=== PATIENT | female | born 1970 | race Caucasian/White ===

== ENCOUNTER 2018-04-02 09:49 | Emergency (ER) | payer OTHER ==
[2018-04-02] MEDS ORDERED: NS 0.9% 1000 ML* 1,000 ML IV ONE (10:26)
[2018-04-02] MEDS ORDERED: Ketorolac INJ* 15 MG/ML 1 ML VIAL IV ONE (10:26)
[2018-04-02 11:23] LABS: ABS Basophils 0.1 10^3/ul (0-0.2); ABS Eosinophils 0.1 10^3/ul (0-0.6); ABS Lymphocytes 2.7 10^3/ul (1.0-4.8); ABS Monocytes 0.4 10^3/ul (0-0.8); ABS Neutrophils 4.7 10^3/ul (1.5-7.7); ABS Nucleated RBC 0 10^3/ul; Eosinophil % 1.5 % (0-6); Hematocrit 40 % (35-47); Hemoglobin 13.8 g/dl (12.0-16.0); Lymphocyte % 34.3 % (25-47); Mean Corpuscular HGB Conc 35 g/dl (31-36); Mean Corpuscular Hemoglobin 33 pg (27-31); Mean Corpuscular Volume 96 fL (80-97); Mean Platelet Volume 8.8 um3 (7.4-10.4); Nucleated Red Blood Cells % 0.1; Platelet Count 252 10^3/ul (150-450); Red Blood Count 4.17 10^6/ul (4.00-5.40); Red Cell Distribution Width 14 % (10.5-15)
[2018-04-02 11:39] LABS: EGFR Non-African American 93.2 (>60)
[2018-04-02] MEDS ORDERED: Iohexol 300* (CONTRAST) 10 ML SDV IV ONE (12:00)
[2018-04-02 12:36] LABS: Urine Appearance Cloudy; Urine Blood Negative (Negative); Urine Color Yellow; Urine Ketones Negative (Negative); Urine Protein Negative (Negative); Urine Specific Gravity 1.009 (1.010-1.030); Urine Urobilinogen Negative (Negative)
--- NOTE | 2018-04-02 12:41 | RAD ---
INDICATION: Abdominal pain COMPARISON: None TECHNIQUE: Axial source images were obtained from the hemidiaphragms to the symphysis pubis following administration intravenous contrast only as directed by the ED physician. There are inherent limitations without oral contrast and if there is persistent concern recommend routine contrast enhanced imaging. Coronal and sagittal reconstructed images were acquired. Lung bases: The lung bases are clear. Liver: The liver is normal in size. There are no masses. There is no ductal dilatation. Gallbladder: Cholecystectomy. Spleen: The spleen is normal in size. There are no masses. Pancreas: There is no focal pancreatic mass or ductal dilatation. Adrenal glands: There is no evidence of adrenal mass. Kidneys: The kidneys are normal in size and position. There are prompt nephrograms and there is prompt excretion bilaterally. There are no renal parenchymal masses. There is no evidence of nephrolithiasis. Adenopathy: There is no gross evidence of adenopathy by size criteria. Fluid collections: There are no free or localized fluid collections. Vessels:There are no significant atherosclerotic changes involving the aorta. There is no focal aneurysm. The iliac vessels are normal in caliber. The IVC appears normal. GI tract: Evaluation of the GI tract is limited without oral contrast. There are no gross abnormalities the upper or lower GI tract. Appendix is visualized and appears normal. There is no obstruction. Pelvic organs: Uterus and left adnexa are normal. There is a presumed involuting 1.2 cm right ovarian cyst Bladder: There are no bladder masses. Abdominal and pelvic soft tissues: The extraperitoneal abdominal and pelvic soft tissues appear normal.. Osseous structures: There are no acute osseous findings. Other: None IMPRESSION: NO ACUTE CT FINDINGS. NO MASS OR INFLAMMATORY CHANGES. PRESUMED INVOLUTING RIGHT OVARIAN CYST
[2018-04-02 13:05] VITALS: BP 117/72
--- NOTE | 2018-04-03 15:58 | ED ---
Sher Saenz Angela, scribed for Nereida Cavanaugh MD on 04/02/18 at 1025 . Abdominal Pain/Female - HPI Summary HPI Summary: This pt is a 47 y/o female presenting to [facility] c/o sudden onset of lower abdominal pain since 08:00 this morning. Her abdominal pain began while she was sitting in her 's truck. Pt reports her abd pain is intermittent and is described as sharp. She states her pain is aggravated with ambulation. At onset of her pain she rates is 10/10 in severity. Currently her pain is rated 5/10 in severity. Pt additionally c/o left sided back pain. Denies nausea, vomiting, dysuria, urinary frequency, diarrhea, constipation. Her last bowel movement was this morning and states it was normal. 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 Denies hx of kidney stones. PMHx significant for cholecystectomy (4-5 years ago) . Pt is current every day smoker, she smokes 1 PPD. Denies alcohol use. NKDA. - History of Current Complaint Chief Complaint: EDAbdPain Stated Complaint: ABD PAIN Time Seen by Provider: 04/02/18 10:16 Hx Obtained From: Patient Onset/Duration: Lasting Hours, Still Present Timing: Hours Severity Initially: Severe Severity Currently: Moderate Pain Intensity: 5 Pain Scale Used: 0-10 Numeric Location: Other - lower Radiates: No Character: Sharp Aggravating Factor(s): Other: - ambulation Alleviating Factor(s): Nothing Associated Signs and Symptoms: Positive: Back Pain - right sided. Negative: Fever, Constipation, Urinary Symptoms, Nausea, Vomiting, Diarrhea Allergies/Adverse Reactions: Allergies Allergy/AdvReac Type Severity Reaction Status Date / Time bee venom protein (honey bee) Allergy Anaphylatic Verified 04/02/18 10:12 Shock Home Medications: Home Medications NK [No Home Medications Reported] 04/02/18 [History Confirmed 04/02/18] PMH/Surg Hx/FS Hx/Imm Hx Endocrine/Hematology History: Denies: Hx Diabetes Cardiovascular History: Denies: Hx Hypertension History: Denies: Hx Kidney Stones - Cancer History Hx Chemotherapy: No Hx Radiation Therapy: No - Surgical History Surgery Procedure, Year, and Place: tubal ligation. Cholecystectomy Infectious Disease History: No Infectious Disease History: Denies: History Other Infectious Disease, Traveled Outside the [place] in Last 30 Days - Family History Known Family History: Positive: Hypertension Family History: Sister: breast [place] - Social History Alcohol Use: Occasionally Substance Use Type: Reports: None Hx Tobacco Use: Yes Smoking Status (MU): Heavy Every Day Tobacco Smoker Amount Used/How Often: 1 PPD Review of Systems Negative: Fever, Chills Positive: Abdominal Pain. Negative: Vomiting, Diarrhea, Nausea, Other - constipation Negative: dysuria, frequency Musculoskeletal: Other - right sided back pain All Other Systems Reviewed And Are Negative: Yes Physical Exam - Summary Physical Exam Summary: GENERAL: Patient is a well developed and nourished female who is lying comfortable in the stretcher. Patient is not in any acute respiratory distress. HEAD AND FACE: Normocephalic EYES: PERRLA, EOMI x 2. EARS: Hearing grossly intact. MOUTH: Oropharynx within normal limits. NECK: Supple, trachea is midline, no adenopathy, no JVD, no carotid bruit. CHEST: Symmetric, no tenderness at palpation LUNGS: Clear to auscultation bilaterally. No wheezing or crackles. CVS: Regular rate and rhythm, S1 and S2 present, no murmurs or gallops appreciated. ABDOMEN: Soft, non-tender. Bowel sounds are normal. No abdominal abnormal pulsations. EXTREMITIES: Full ROM in all major joints, no edema, no cyanosis or clubbing. NEURO: Alert and oriented x 3. No acute neurological deficits. Speech is normal and follows commands. SKIN: Dry and warm Triage Information Reviewed: Yes Vital Signs On Initial Exam: Initial Vitals Temp Pulse Resp BP Pulse Ox 97.8 F 67 18 117/69 98 04/02/18 10:09 04/02/18 10:04/02/18 10:09 04/02/18 10:04/02/18 10:09 Vital Signs Reviewed: Yes Diagnostics - Vital Signs Vital Signs Temp Pulse Resp BP Pulse Ox 04/02/18 10:09 97.8 F 67 18 117/69 98 - Laboratory Lab Results: Lab Results 04/02/18 04/02/18 04/02/18 Range/Units 10:48 10:48 10:48 WBC 8.0 (3.5-10.8) 10^3/ul RBC 4.17 (4.00-5.40) 10^6/ul Hgb 13.8 (12.0-16.0) g/dl Hct 40 (35-47) % MCV 96 (80-97) fL MCH 33 H (27-31) pg MCHC 35 (31-36) g/dl RDW 14 (10.5-15) % Plt Count 252 (150-450) 10^3/ul MPV 8.8 (7.4-10.4) um3 Neut % (Auto) 58.2 (38-83) % Lymph % (Auto) 34.3 (25-47) % Karnes % (Auto) 5.2 (0-7) % Eos % (Auto) 1.5 (0-6) % Baso % (Auto) 0.8 (0-2) % Absolute Neuts (auto) 4.7 (1.5-7.7) 10^3/ul Absolute Lymphs (auto) 2.7 (1.0-4.8) 10^3/ul Absolute Monos (auto) 0.4 (0-0.8) 10^3/ul Absolute Eos (auto) 0.1 (0-0.6) 10^3/ul Absolute Basos (auto) 0.1 (0-0.2) 10^3/ul Absolute Nucleated RBC 0 10^3/ul Nucleated RBC % 0.1 Sodium 139 (135-145) mmol/L Potassium 3.9 (3.5-5.0) mmol/L Chloride 111 (101-111) mmol/L Carbon Dioxide 22 (22-32) mmol/L Anion Gap 6 (2-11) mmol/L BUN 9 (6-24) mg/dL Creatinine 0.68 (0.51-0.95) mg/dL Est GFR ( Amer) 119.8 (>60) Est GFR (Non-Af Amer) 93.2 (>60) BUN/Creatinine Ratio 13.2 (8-20) Glucose 98 (70-100) mg/dL Lactic Acid 0.7 (0.5-2.0) mmol/L Calcium 9.4 (8.6-10.3) mg/dL Magnesium 2.0 (1.9-2.7) mg/dL Total Bilirubin 0.30 (0.2-1.0) mg/dL AST 14 (13-39) U/L ALT 4 L (7-52) U/L Alkaline Phosphatase 69 (34-104) U/L C-Reactive Protein 2.94 (<8.01) mg/L Total Protein 6.9 (6.4-8.9) g/dL Albumin 4.2 (3.2-5.2) g/dL Globulin 2.7 (2-4) g/dL Albumin/Globulin Ratio 1.6 (1-3) Amylase 33 (29-103) U/L Lipase 31 (11.0-82.0) U/L Beta HCG, Quant < 0.60 mIU/mL Urine Color Urine Appearance Urine pH (5-9) Ur Specific Roscoe (1.010-1.030) Urine Protein (Negative) Urine Ketones (Negative) Urine Blood (Negative) Urine Nitrate (Negative) Urine Bilirubin (Negative) Urine Urobilinogen (Negative) Ur Leukocyte Esterase (Negative) Urine Glucose (Negative) 04/02/18 Range/Units 12:28 WBC (3.5-10.8) 10^3/ul RBC (4.00-5.40) 10^6/ul Hgb (12.0-16.0) g/dl Hct (35-47) % MCV (80-97) fL MCH (27-31) pg MCHC (31-36) g/dl RDW (10.5-15) % Plt Count (150-450) 10^3/ul MPV (7.4-10.4) um3 Neut % (Auto) (38-83) % Lymph % (Auto) (25-47) % Karnes % (Auto) (0-7) % Eos % (Auto) (0-6) % Baso % (Auto) (0-2) % Absolute Neuts (auto) (1.5-7.7) 10^3/ul Absolute Lymphs (auto) (1.0-4.8) 10^3/ul Absolute Monos (auto) (0-0.8) 10^3/ul Absolute Eos (auto) (0-0.6) 10^3/ul Absolute Basos (auto) (0-0.2) 10^3/ul Absolute Nucleated RBC 10^3/ul Nucleated RBC % Sodium (135-145) mmol/L Potassium (3.5-5.0) mmol/L Chloride (101-111) mmol/L Carbon Dioxide (22-32) mmol/L Anion Gap (2-11) mmol/L BUN (6-24) mg/dL Creatinine (0.51-0.95) mg/dL Est GFR ( Amer) (>60) Est GFR (Non-Af Amer) (>60) BUN/Creatinine Ratio (8-20) Glucose (70-100) mg/dL Lactic Acid (0.5-2.0) mmol/L Calcium (8.6-10.3) mg/dL Magnesium (1.9-2.7) mg/dL Total Bilirubin (0.2-1.0) mg/dL AST (13-39) U/L ALT (7-52) U/L Alkaline Phosphatase (34-104) U/L C-Reactive Protein (<8.01) mg/L Total Protein (6.4-8.9) g/dL Albumin (3.2-5.2) g/dL Globulin (2-4) g/dL Albumin/Globulin Ratio (1-3) Amylase (29-103) U/L Lipase (11.0-82.0) U/L Beta HCG, Quant mIU/mL Urine Color Yellow Urine Appearance Cloudy Urine pH 6.0 (5-9) Ur Specific Roscoe 1.009 L (1.010-1.030) Urine Protein Negative (Negative) Urine Ketones Negative (Negative) Urine Blood Negative (Negative) Urine Nitrate Negative (Negative) Urine Bilirubin Negative (Negative) Urine Urobilinogen Negative (Negative) Ur Leukocyte Esterase Negative (Negative) Urine Glucose Negative (Negative) Result Diagrams: 04/02/18 10:48 04/02/18 10:48 Lab Statement: Any lab studies that have been ordered have been reviewed, and results considered in the medical decision making process. - CT Abdomen/Pelvis CT CT Interpretation: No Acute Changes - IMPRESSION: No acute CT findings. No mass or inflammatory changes. Presumed involuting right ovarian cyst. Dr. Cavanaugh has reviewed this radiology report. CT Interpretation Completed By: Radiologist Re-Evaluation - Re-Evaluation First Eval Re-Evaluation Time: 12:53 Change: Improved Comment: CT shows pt has a 1.2 cm right ovarian cyst, she is aware of this. I offered her an ultrasound but she declines as she reports her pain is better. Pt notes her pain was located in the mid and left lower abdomen. Pt states she will return to the ED if her pain returns and/or worsens. Abdominal Pain Fem Course/Dx - Course Course Of Treatment: 47-year-old female who presents to the emergency room with an acute onset of lower abdominal pain worse on the left than on the right. CT scan of the abdomen and pelvis was obtained which shows probably right ovarian cyst measuring 1.2 cm for each patient said that she is aware. I offered to do an ultrasound of the pelvis however, patient reports that her pain is much better and will return to the hospital for any change in symptoms - Diagnoses Provider Diagnoses: Abdominal pain, Right ovarian cyst Discharge - Sign-Out/Discharge Documenting (check all that apply): Discharge/Admit/Transfer - Discharge - Discharge Plan Condition: Stable Disposition: HOME Patient Education Materials: Ovarian Cyst (ED), Abdominal Pain (ED) Referrals: No Primary Care Phys,NOPCP [Primary Care Provider] - [facility] [Outside] Additional Instructions: Please establish a primary care provider and follow up. RETURN TO THE ED FOR ANY NEW OR WORSENING SYMPTOMS. - Billing Disposition and Condition Condition: STABLE Disposition: Home The documentation as recorded by the Sher jackson Angela accurately reflects the service I personally performed and the decisions made by me, Nereida Cavanaugh MD.
== END 2018-04-02 13:02 | disposition home or self-care (01) ==
LOC: ED 09:49
DX: R10.32 Left lower quadrant pain (principal); N83.201 Unspecified ovarian cyst, right side; F17.200 Nicotine dependence, unspecified, uncomplicated; Z90.49 Acquired absence of other specified parts of digestive tract
CPT/HCPCS: 36415; 74177; 80053; 81003; 82150; 83605; 83690; 83735; 84702; 85025; 86140; 96361; 96374; 99282; J1885; Q9967

== ENCOUNTER 2019-04-07 08:09 | Day surgery (SDC) | payer OTHER ==
--- NOTE | 2019-04-03 08:31 | HP ---
PREOPERATIVE HISTORY AND PHYSICAL: DATE OF SURGERY/ADMISSION: 04/07/19 - [facility] DATE OF OFFICE VISIT/ENCOUNTER: 03/18/19 ATTENDING SURGEON: Elvia Cheng MD * (DICTATED BY DANA HILLIARD) PROCEDURE: Left wrist carpal tunnel release. HISTORY OF PRESENT ILLNESS: This is a 48-year-old female who complains of numbness and tingling in the bilateral hands, worse on the left than on the right. She has had ongoing trouble for several months. There was no specific injury. These symptoms have been significant enough and disrupting her activities of daily life that she would like definitive treatment. She has consented to proceed with a left wrist carpal tunnel release. PAST MEDICAL HISTORY: Unremarkable. PAST SURGICAL HISTORY: 1. Tubal ligation. 2. Cholecystectomy. MEDICATIONS: Ibuprofen p.r.n. ALLERGIES: No known drug allergies. FAMILY MEDICAL HISTORY: Diabetes and cancer. 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 She is a current smoker. She reports smoking 6 cigarettes per day. She smoked since age 17. She also uses marijuana on a regular occasion. She does not drink alcohol. REVIEW OF SYSTEMS: Negative for general, cephalic, cardiovascular, respiratory , GI, , other musculoskeletal, integumentary, endocrine, neurologic, and hematologic symptoms. Infectious Disease: Negative for MRSA, hepatitis C, HIV. PHYSICAL EXAMINATION GENERAL: Well-developed, well-nourished, 48-year-old female, in no acute distress. VITAL SIGNS: Height 5 feet 7 inches, weight 172 pounds, pulse rate 72, blood pressure 118/84. HEENT: Normocephalic and atraumatic. Pupils are equal, round, and reactive to light and accommodation. Extraocular movements are intact. Throat is clear. NECK: Supple. No palpable lymph nodes. PULMONARY: Lungs are clear to auscultation bilaterally. No wheezes, rales, or rhonchi. CARDIOVASCULAR: Regular rate and rhythm. S1 and S2. No murmurs, rubs, or gallops. No edema. ABDOMEN: Positive bowel sounds. Soft and nontender. NEUROLOGIC: Alert and oriented x3. Cranial nerves II through XII are intact. Sensation is intact to light touch. MUSCULOSKELETAL: On exam of her bilateral upper extremities, there is mild thenar wasting bilaterally and there is weakness with thumb abduction. Otherwise, she has good range of motion of her fingers. She has positive Phalen test bilaterally. Negative Tinel's at the ulnar nerve, at the elbow. She reports decreased sensation in the median nerve distribution to light touch bilateral hands. IMPRESSION: Bilateral carpal tunnel syndrome, worse on the left than on the right. PLAN/RECOMMENDATIONS: The patient is scheduled to undergo a left wrist carpal tunnel release with Dr. Cheng on 04/07/19. She will return to the office 10 days postop for followup and suture removal. A prescription for Ultracet was e-scribed to the patient's pharmacy for postoperative pain management. DANA HILLIARD [id number]/CPS #: [id number] MTDD
[~2019-04-07 08:09] MED LIST: Buffered Lidocaine 1% SYRIN* 1 ML/SYRINGE INTRADERM ONE; Lactated Ringers 1000 ML Bag* 1,000 ML IV SCH; Lidocaine 1% INJ* 10 MG/ML 30 ML SDV ONE; Scopolamine 1.5 mg* PATCH TRANSDERM SCH
[2019-04-07] MEDS ORDERED: Midazolam* 1 MG/ML 2 ML VIAL (2 MG) ONE (08:44)
[2019-04-07] MEDS ORDERED: Propofol* 10 MG/ML 20 ML BTL ONE (08:44)
[2019-04-07] MEDS ORDERED: fentaNYL* 50 MCG/ML 2 ML VIAL (100 MCG VIAL) ONE (08:44)
[2019-04-07] MEDS ORDERED: Naloxone* 0.4 MG/ML 1 ML VIAL IV PRN (09:07)
[2019-04-07] MEDS ORDERED: Acetaminophen TAB* 325 MG PO PRN (09:07)
[2019-04-07] MEDS ORDERED: fentaNYL* 50 MCG/ML 2 ML VIAL (100 MCG VIAL) IV PRN (09:07)
[2019-04-07] MEDS ORDERED: Ondansetron INJ* 2 MG/ML VIAL IV PRN (09:07)
[2019-04-07] MEDS ORDERED: oxyCODONE/Acetamin 5/325 MG* TAB PO PRN (09:07)
[2019-04-07] MEDS ORDERED: Ibuprofen TAB* 600 MG PO PRN (09:07)
[2019-04-07 09:52] VITALS: BP 115/70
--- NOTE | 2019-04-07 12:40 | OP ---
DATE OF OPERATION: 04/07/19 [facility] DATE OF : 72 SURGEON: Elvia Cheng MD YARDING ENGINEER: DANA Cabral ANESTHESIA: Local MAC. PRE-OP DIAGNOSIS: Right carpal tunnel syndrome. POST-OP DIAGNOSIS: Right carpal tunnel syndrome. OPERATIVE PROCEDURE: Right carpal tunnel release. ESTIMATED BLOOD LOSS: Zero. TOURNIQUET TIME: Approximately 10 minutes. INDICATIONS FOR PROCEDURE: Rocio is a 48-year-old woman who has numbness and tingling in the median nerve distribution of her right hand. She presents for right carpal tunnel release. DESCRIPTION OF PROCEDURE: The patient was brought to the operating room, was given a sedation anesthetic and a local infiltration of 10 cc of 1% plain lidocaine in the palm of her right hand. The skin of her right hand and forearm was prepped and draped in the usual sterile fashion. The hand and forearm were exsanguinated and the tourniquet elevated to 250 mmHg. A longitudinal incision was made in the palm in line with the ring finger. We dissected through the subcutaneous tissue down to the transverse carpal ligament. The ligament was divided sharply with a knife and then more proximally with the scissors. The nerve was dissected free from the surrounding tissue and there was an area of moderate compression at the mid portion of the ligament. The wound was irrigated and the skin edges reapproximated with 4- 0 nylon suture. The wound was dressed with Xeroform, 4x4 , Webril, and an Abdulkadir wrap. The patient tolerated the procedure well and was brought to the recovery room in good condition. [id number]/CPS #: [id number] [facility]
== END 2019-04-07 10:07 | disposition home or self-care (01) ==
LOC: OREAST 08:09
PROVIDERS: ATTEND Orthopaedic Surgery
DX: G56.01 Carpal tunnel syndrome, right upper limb (principal); Z72.0 Tobacco use; J45.909 Unspecified asthma, uncomplicated; I25.2 Old myocardial infarction
CPT/HCPCS: J2250; J2704; J3010

== ENCOUNTER 2019-12-14 11:53 | Emergency (ER) | payer SELFPAY ==
[2019-12-14 12:38] VITALS: BP 116/63
[2019-12-14] MEDS ORDERED: Tetan/Diph/Pertus SYR(Tdap)* 0.5 ML SYR(BOOSTRIX) use SYR contains LATEX IM ONE (12:49)
--- NOTE | 2019-12-14 13:15 | UC ---
Hand/Wrist HPI - HPI Summary HPI Summary: 48-year-old female presents with injury to her right thumb. States at approximately 10:30 this morning she accidentally shut her thumb in a door at work causing a laceration just below the fingernail. Bleeding was controlled prior to arrival. States has full range of motion to the thumb. Tetanus status is unknown. Denies any numbness or tingling. - History Of Current Complaint Chief Complaint: UCUpperExtremity Stated Complaint: FINGER INJURY Time Seen by Provider: 12/14/19 12:44 Hx Obtained From: Patient Hx Last Menstrual Period: Pain Intensity: 7 - Allergies/Home Medications Allergies/Adverse Reactions: Allergies Allergy/AdvReac Type Severity Reaction Status Date / Time bee venom protein (honey bee) Allergy Severe Anaphylatic Verified 12/14/19 12:38 Shock Fish Containing Products Allergy Severe red Verified 12/14/19 12:38 blotches all over Home Medications: Home Medications Ibuprofen TAB* [Motrin TAB* 800 MG] 800 mg PO BID 03/31/19 [History Confirmed ] PMH/Surg Hx/FS Hx/Imm Hx Previously Healthy: Yes - Denies significant PMH - Surgical History Surgical History: Yes Surgery Procedure, Year, and Place: tubal ligation. Cholecystectomy - Family History Known Family History: Positive: Hypertension Family History: Sister: breast [place] - Social History Occupation: Employed Full-time Lives: Alone Alcohol Use: None Substance Use Type: Marijuana Smoking Status (MU): Heavy Every Day Tobacco Smoker Amount Used/How Often: 1 PPD, on and off since 17 years old Household Exposure Type: Cigarettes Review of Systems All Other Systems Reviewed And Are Negative: Yes Constitutional: Positive: Negative Skin: Positive: Other - See HPI Respiratory: Positive: Negative Cardiovascular: Positive: Negative Gastrointestinal: Positive: Negative Genitourinary: Positive: Negative Motor: Negative: Weakness Neurovascular: Negative: Decreased Sensation Musculoskeletal: Negative: Decreased ROM Neurological/Mental Status: Positive: Negative Is Patient Immunocompromised?: No Physical Exam - Summary Physical Exam Summary: GENERAL APPEARANCE: Well developed, well nourished, alert and cooperative, and appears to be in no acute distress. CARDIAC: Normal S1 and S2. No S3, S4 or murmurs. Rhythm is regular. There is no peripheral edema, cyanosis or pallor. Extremities are warm and well perfused. Capillary refill is less than 2 seconds. Peripheral pulses intact. LUNGS: Clear to auscultation without rales, rhonchi, wheezing or diminished breath sounds. ABDOMEN: Positive bowel sounds. Soft, nondistended, nontender. No guarding or rebound. No masses or hepatosplenomegally. MUSKULOSKELETAL: ROM intact to all extremities. No joint erythema or tenderness. Normal muscular development. Normal gait. EXTREMITIES: Superficial flap laceration of the proximal nail fold of the right thumb without involvement of the nail. No gross deformity. Full ROM to the thumb. Circulation and sensation intact. SKIN: Skin normal color, texture and turgor. Triage Information Reviewed: Yes Vital Signs: Initial Vital Signs Temp 99.4 F 12/14/19 12:33 Pulse 72 12/14/19 12:33 Resp 16 12/14/19 12:33 BP 116/63 12/14/19 12:33 Pulse Ox 99 12/14/19 12:33 Vital Signs Reviewed: Yes Diagnostics - Radiology No standard instances Radiology Interpretation Completed By: Radiologist Summary of Radiographic Findings: Order Information: THUMB RIGHT. HISTORY: pain s/p injury . COMPARISONS: None relevant available at the time of dictation. VIEWS: 3, Frontal, lateral, and oblique views of the first digit of the right hand. FINDINGS: BONE DENSITY: Normal. BONES: There is no displaced fracture. JOINTS: There is osteoarthritis of the first interphalangeal, CMC, MCP joints. ALIGNMENT: There is no dislocation. SOFT TISSUES: Unremarkable. OTHER FINDINGS: None. IMPRESSION: OSTEOARTHRITIS. NO ACUTE OSSEOUS INJURY. Hand/Wrist Course/Dx - Course Course Of Treatment: 48-year-old female presents with injury to her right thumb. States at approximately 10:30 this morning she accidentally shut her thumb in a door at work causing a laceration just below the fingernail. Bleeding was controlled prior to arrival. States has full range of motion to the thumb. Tetanus status is unknown. Denies any numbness or tingling. Afebrile. Vital signs stable. On exam patient had a superficial flap laceration of the proximal nail fold of the right thumb without involvement of the nail. No gross deformity. Full ROM to the thumb. Circulation and sensation intact. X-ray showed no acute fracture or dislocation. The wound was irrigated by the RN. Due to the superficial nature of the injury I did not feel that any repair was necessary although I did discuss with the patient that because the flap laceration was superficial it was likely that there would not be an adequate blood supply in that the skin would eventually fall off. We also discussed that because the injury was located over the nail matrix that there was a good chance that she may also lose the fingernail. The wound was dressed by the RN and a finger splint was applied by the RN to provide protection. She is to follow-up with occupational medicine in one week if the wound was failing to heal appropriately. Anticipatory guidance and warning symptoms were reviewed with the patient. Verbalizes understanding and agrees with plan of care. - Differential Dx/Diagnosis Differential Diagnosis/HQI/PQRI: Contusion, Fracture, Subungual Hematoma, Other - Laceration Provider Diagnosis: Injury of right thumb Discharge ED - Sign-Out/Discharge Documenting (check all that apply): Patient Departure All imaging exams completed and their final reports reviewed: Yes - Discharge Plan Condition: Stable Disposition: HOME Patient Education Materials: Acute Wound Care (ED) Forms: *Work Release Referrals: Leslie Marsh MD [Primary Care Provider] - German Davis MD [Medical Doctor] - Additional Instructions: The x-ray performed in the clinic today showed no evidence of a fracture. Rest the thumb as much as possible. Wear the splint to help protect the thumb. Apply ice to the affected area for 15-20 minutes at least 4 times a day to help with the pain and swelling. Elevate the hand to help reduce swelling. Take acetaminophen (Tylenol) or ibuprofen (Advil, Motrin) according to directions as needed for pain. The laceration was superficial and did not require repair. I suspect that you may lose the fingernail as the injury was over the nail matrix. Clean the wound with a mild soap and water at least once a day. Apply some antibiotic ointment and cover with a bandage. This should be changed at least once a day or any time the dressing becomes wet or soiled. Do not submerge the hand under water such as with washing dishes to prevent infection. Watch for signs of infection including fever greater than 100.5 F, severe pain not managed with pain medication, redness that spreads, swelling of the hand/ fingers, or pus draining from the wound. Seek immediate medical attention should any of these occur. Follow up with occupational health in 7 days if symptoms do not improve. Call for appointment. Seek immediate medical attention if you have severe pain not managed with pain medication, develop numbness or tingling in the hand or finger, or have any worsening of symptoms. - Billing Disposition and Condition Condition: STABLE Disposition: Home
== END 2019-12-14 14:03 | disposition home or self-care (01) ==
LOC: UCEAST 11:53
DX: S69.91XA Unspecified injury of right wrist, hand and finger(s), initial encounter (principal); M19.041 Primary osteoarthritis, right hand; W23.0XXA Caught, crushed, jammed, or pinched between moving objects, initial encounter; Y99.0 Civilian activity done for income or pay; Y92.9 Unspecified place or not applicable; F17.210 Nicotine dependence, cigarettes, uncomplicated; Z91.030 Bee allergy status; Z91.013 Allergy to seafood
CPT/HCPCS: 90471; 90715; 99212; G0463

== ENCOUNTER 2023-06-09 11:03 | Inpatient (IN) ==
[2023-06-09 11:51] LABS: Hematocrit 33.9 % (35-45); Hemoglobin 11.8 g/dL (11.5-14.3); Mean Corpuscular Hemoglobin 32.6 pg (27-33); Mean Corpuscular Hgb Conc 34.9 g/dL (31-36); Mean Corpuscular Volume 93.6 fL (80-97); Mean Platelet Volume 8.1 fL (7.5-11.2); Platelet Count 286 10^3/uL (150-450); Red Blood Count 3.63 10^6/uL (3.63-4.92); Red Cell Distribution Width 14.4 % (12-17); White Blood Count 4.1 10^3/uL (3.8-11.8)
[2023-06-09] MEDS ORDERED: Morphine 4 MG/ML VIAL (1 ml) IV ONE ×2 (12:04→13:50)
[2023-06-09 12:08] LABS: ALT 8 U/L (7-52); AST 18 U/L (13-39); Albumin 3.8 g/dL (3.2-5.2); Albumin/Globulin Ratio 1.1 (1-3); Alkaline Phosphatase 94 U/L (35-149); Anion Gap 7 mmol/L (2-16); Blood Urea Nitrogen 18 mg/dL (6-24); C Reactive Protein 151.67 mg/L (<8.01); CO2 Carbon Dioxide 24 mmol/L (22-32); Calcium 8.8 mg/dL (8.6-10.3); Chloride 103 mmol/L (101-111); Creatinine, Serum 0.84 mg/dL (0.51-0.95); Globulin 3.4 g/dL (2-4); Glucose 106 mg/dL (70-100); Potassium 3.3 mmol/L (3.5-5.0); Sodium 134 mmol/L (135-145); Total Protein 7.2 g/dL (6.4-8.9); eGFR CKD-EPI 84.1 (>60)
[2023-06-09 12:25] LABS: ABS Lymphocytes 0.3 10^3/uL (1.0-4.8); ABS Monocytes 0.4 10^3/uL (0.0-0.9); ABS Neutrophils 3.4 10^3/uL (1.5-7.6); Eosinophil % 0.3 %; Lymphocyte % 7.2 %; RBC Morphology Normal (Normal)
[2023-06-09 12:39] LABS: HCG Pregnancy < 0.60 mIU/mL
[2023-06-09] MEDS ORDERED: Iohexol 350 (CONTRAST) 500 ML MDV IV ONE (13:54)
[2023-06-09] MEDS ORDERED: Piperacillin/Tazobac 3.375 BAG 3.375 GM/100 ML BAG IV ONE (14:24)
[2023-06-09] MEDS ORDERED: HYDROmorphone 0.5 MG/0.5 ML SYRINGE IV ONE (15:55)
[2023-06-09] MEDS ORDERED: NS 0.9% 1000 ml BAG 1,000 ML IV ONE (16:18)
[2023-06-09] MEDS ORDERED: HYDROmorphone 0.5 MG/0.5 ML SYRINGE ONE (16:39)
[2023-06-09] MEDS ORDERED: Acetaminophen IV 1 GM/100ML 1,000 MG/100 ML BAG IV ONE (16:39)
[2023-06-09] MEDS ORDERED: Dexamethasone IV 4 MG/ML VIAL 1 ml VIAL ONE (16:39)
[2023-06-09] MEDS ORDERED: Ondansetron 4 mg VIAL 2 MG/ML 2 ml VIAL ONE (16:39)
[2023-06-09] MEDS ORDERED: Propofol 10 MG/ML 20 ML BTL ONE (16:39)
[2023-06-09] MEDS ORDERED: Rocuronium 50 mg VIAL 10 mg/ml 5 ml VIAL (50 mg) ONE (16:39)
[2023-06-09] MEDS ORDERED: Metoclopramide 5 MG/ML VIAL (10 mg) ONE (16:39)
[2023-06-09] MEDS ORDERED: Succinylcholine 200 mg VIAL 20 mg/ml 10 ml VIAL (200 mg) ONE (16:39)
[2023-06-09] MEDS ORDERED: fentaNYL 250 mcg/5 ml 50 MCG/ML 5 ml VIAL (250 MCG) ONE (16:39)
[2023-06-09] MEDS ORDERED: Bupivacaine 0.5% 50 ML MDV VIAL INJ ONE (16:44)
[2023-06-09] MEDS ORDERED: Prochlorperazine 5 mg/ml 2 ml VIAL (10 mg) IV PRN (17:06)
[2023-06-09] MEDS ORDERED: HYDROmorphone 1 MG/1 ML SYRINGE IV PRN (17:06)
[2023-06-09] MEDS ORDERED: Naloxone 0.4 mg VIAL 0.4 mg/ml 1 ml VIAL IV PRN (17:06)
[2023-06-09] MEDS ORDERED: fentaNYL 100 mcg/2 ml 50 MCG/ML VIAL IV PRN (17:06)
[2023-06-09] MEDS ORDERED: fentaNYL 100 mcg/2 ml 50 MCG/ML VIAL ONE ×2 (19:14→19:35)
[2023-06-09] MEDS ORDERED: Benzocaine (plain) Lozenge 15 MG MT PRN (20:59)
[2023-06-09] MEDS ORDERED: KCL 20 MEQ/100 ML IVPREMIX 20 MEQ/100 ML BAG IV ONE (20:59)
[2023-06-09] MEDS ORDERED: Naloxone 0.4 mg VIAL 0.4 mg/ml 1 ml VIAL IV PUSH PRN (20:59)
[2023-06-09] MEDS ORDERED: Albuterol HFA INHALER 8 gm MDI INH PRN (21:08)
[2023-06-09] MEDS ORDERED: Famotidine IV 10 MG/ML 2 ml VIAL (20 mg) IV SLOW PU PRN (21:10)
[2023-06-09] MEDS ORDERED: HYDROmorphone 0.5 MG/0.5 ML SYRINGE IV SLOW PU PRN (21:10)
[2023-06-09] MEDS ORDERED: ZOSYN 3.375 GM x ONE DOSE over 30 miuntes IV (22:00)
[2023-06-09] MEDS: D5W 1/2 NS KCl 20 meq 1000 ml 1,000 ML IV SCH (22:53)
[2023-06-09] MEDS ORDERED: HYDROmorphone PCA 20 MG/20 ML PCA.SYRING PCA SCH (23:00)
[2023-06-10] MEDS: Acetaminophen IV 1 GM/100ML 1,000 MG/100 ML BAG IV SCH ×3 (00:20→18:25)
[2023-06-10] MEDS: Piperacillin/Tazobac 3.375 BAG 3.375 GM/100 ML BAG IV SCH ×3 (05:47→22:00)
[2023-06-10 07:05] LABS: ABS Lymphocytes 0.8 10^3/uL (1.0-4.8); ABS Monocytes 0.3 10^3/uL (0.0-0.9); Eosinophil % 0.1 %; Hematocrit 33.1 % (35-45); Hemoglobin 11.2 g/dL (11.5-14.3); Lymphocyte % 9.9 %; Mean Corpuscular Hemoglobin 32.1 pg (27-33); Mean Corpuscular Hgb Conc 33.8 g/dL (31-36); Mean Platelet Volume 8.4 fL (7.5-11.2); Platelet Count 317 10^3/uL (150-450); Red Blood Count 3.49 10^6/uL (3.63-4.92); Red Cell Distribution Width 14.7 % (12-17); White Blood Count 8.1 10^3/uL (3.8-11.8)
[2023-06-10 07:20] LABS: Calcium 7.5 mg/dL (8.6-10.3); Creatinine, Serum 0.64 mg/dL (0.51-0.95); Potassium 3.9 mmol/L (3.5-5.0); eGFR CKD-EPI 106.9 (>60)
[2023-06-10] MEDS: D5W 1/2 NS KCl 20 meq 1000 ml 1,000 ML IV SCH ×2 (10:44→21:55)
[2023-06-10] MEDS: Enoxaparin 40 MG/0.4 ML SYR SUBCUT SCH (10:56)
[2023-06-11] MEDS: Acetaminophen IV 1 GM/100ML 1,000 MG/100 ML BAG IV SCH ×3 (01:03→17:20)
[2023-06-11] MEDS: Piperacillin/Tazobac 3.375 BAG 3.375 GM/100 ML BAG IV SCH ×3 (05:31→21:29)
[2023-06-11] MEDS: Enoxaparin 40 MG/0.4 ML SYR SUBCUT SCH (08:16)
[2023-06-11] MEDS: D5W 1/2 NS KCl 20 meq 1000 ml 1,000 ML IV SCH (08:19)
[2023-06-11] MEDS: Ondansetron 4 mg VIAL 2 MG/ML 2 ml VIAL IV PRN (14:24)
[2023-06-12] MEDS: Acetaminophen IV 1 GM/100ML 1,000 MG/100 ML BAG IV SCH ×2 (01:41→09:50)
[2023-06-12] MEDS: D5W 1/2 NS KCl 20 meq 1000 ml 1,000 ML IV SCH (05:07)
[2023-06-12] MEDS: Piperacillin/Tazobac 3.375 BAG 3.375 GM/100 ML BAG IV SCH ×3 (05:42→21:31)
[2023-06-12] MEDS: Enoxaparin 40 MG/0.4 ML SYR SUBCUT SCH (09:52)
[2023-06-12] MEDS: Ondansetron 4 mg VIAL 2 MG/ML 2 ml VIAL IV PRN (15:10)
[2023-06-12] MEDS ORDERED: Benzocaine/Menthol LOZ MT PRN (17:00)
[2023-06-13] MEDS: Piperacillin/Tazobac 3.375 BAG 3.375 GM/100 ML BAG IV SCH ×3 (05:24→22:16)
[2023-06-13 06:46] LABS: Calcium 8.2 mg/dL (8.6-10.3); Creatinine, Serum 0.83 mg/dL (0.51-0.95); Magnesium 2.1 mg/dL (1.9-2.7); Phosphorus 3.8 mg/dL (2.5-5.0); Potassium 3.5 mmol/L (3.5-5.0); eGFR CKD-EPI 85.3 (>60)
[2023-06-13] MEDS: Enoxaparin 40 MG/0.4 ML SYR SUBCUT SCH (07:34)
[2023-06-14] MEDS: Piperacillin/Tazobac 3.375 BAG 3.375 GM/100 ML BAG IV SCH (06:11)
[2023-06-14] MEDS: Enoxaparin 40 MG/0.4 ML SYR SUBCUT SCH (09:00)
[2023-06-14 10:24] VITALS: BP 148/88
== END 2023-06-14 12:25 | disposition home or self-care (01) | DRG 221 ==
LOC: ED 11:03 → EDHOLD 16:16 → AA 16:47 → SSU 21:52
PROVIDERS: ADMIT Surgery Surgical Critical Care; ATTEND Surgery Surgical Critical Care

== ENCOUNTER 2023-11-12 09:49 | Inpatient (IN) ==
[~2023-11-12 09:49] MED LIST changes: +Buffered Lidocaine 1% SYRIN 1 ml INTRADERM ONE; -Buffered Lidocaine 1% SYRIN* 1 ML/SYRINGE INTRADERM ONE; +Ertapenem 1 GM in NS 0.9% 50 ML BAG IVPB SCH; +Famotidine IV 10 MG/ML 2 ml VIAL (20 mg) IV ONE; -Lactated Ringers 1000 ML Bag* 1,000 ML IV SCH; +Lactated Ringers 1000 ml BAG 1,000 ML IV SCH; -Lidocaine 1% INJ* 10 MG/ML 30 ML SDV ONE; -Scopolamine 1.5 mg* PATCH TRANSDERM SCH
[2023-11-12 10:37] LABS: Rapid COVID-19 Molecular Undetected (Undetected)
[2023-11-12] MEDS ORDERED: Propofol 10 MG/ML 20 ML BTL ONE (10:37)
[2023-11-12] MEDS ORDERED: Lidocaine 2% PF 5 ML VIAL ONE ×2 (10:37→16:49)
[2023-11-12] MEDS ORDERED: Midazolam 2 mg/2 ml VIAL 1 mg/ml 2 ml VIAL (2 mg) ONE (10:38)
[2023-11-12] MEDS ORDERED: Rocuronium 50 mg VIAL 10 mg/ml 5 ml VIAL (50 mg) ONE ×2 (10:38→13:58)
[2023-11-12] MEDS ORDERED: fentaNYL 250 mcg/5 ml 50 MCG/ML 5 ml VIAL (250 MCG) ONE ×2 (10:38→14:14)
[2023-11-12] MEDS ORDERED: Famotidine IV 10 MG/ML 2 ml VIAL (20 mg) ONE (11:11)
[2023-11-12] MEDS ORDERED: Bupivacaine 0.5% SDV PF 30ML VIAL ONE (12:06)
[2023-11-12] MEDS ORDERED: Bupivacaine 0.25% SDV 30 ML ONE (12:06)
[2023-11-12] MEDS ORDERED: Dexamethasone IV 4 MG/ML VIAL 1 ml VIAL ONE (13:31)
[2023-11-12] MEDS ORDERED: Ondansetron 4 mg VIAL 2 MG/ML 2 ml VIAL ONE (13:31)
[2023-11-12] MEDS ORDERED: HYDROmorphone 0.5 MG/0.5 ML SYRINGE ONE ×2 (13:49→14:14)
[2023-11-12] MEDS ORDERED: KETAMINE HCL 10 MG/ML 20 ml VIAL (200 MG) ONE (14:16)
[2023-11-12] MEDS ORDERED: Acetaminophen IV 1 GM/100ML 1,000 MG/100 ML BAG IV ONE (15:29)
[2023-11-12] MEDS ORDERED: Bupivacaine 0.25% SDV PF 10 ML VIAL INJ ONE (17:16)
[2023-11-12] MEDS ORDERED: Naloxone 0.4 mg VIAL 0.4 mg/ml 1 ml VIAL IV PUSH PRN (17:43)
[2023-11-12] MEDS ORDERED: Albuterol/Ipratropium NEB.SOL (2.5/0.5 MG) 3 ML NEB.SOLN INH PRN (17:44)
[2023-11-12] MEDS ORDERED: Ondansetron 4 mg VIAL 2 MG/ML 2 ml VIAL IV PRN (17:53)
[2023-11-12] MEDS ORDERED: fentaNYL 100 mcg/2 ml 50 MCG/ML VIAL IV PRN (17:53)
[2023-11-12] MEDS ORDERED: HYDROmorphone 1 MG/1 ML SYRINGE IV PRN (17:53)
[2023-11-12] MEDS ORDERED: Naloxone 0.4 mg VIAL 0.4 mg/ml 1 ml VIAL IV PRN (17:53)
[2023-11-12] MEDS ORDERED: HYDROmorphone PCA 20 MG/20 ML PCA.SYRING PCA SCH (18:00)
[2023-11-12] MEDS: Lactated Ringers 1000 ml BAG 1,000 ML IV SCH (18:48)
[2023-11-12] MEDS ORDERED: Calcium Carb (TUMS) 500 mg CHEW TAB PO PRN (19:47)
[2023-11-13] MEDS: Lactated Ringers 1000 ml BAG 1,000 ML IV SCH (04:58)
[2023-11-13 08:19] LABS: ABS Basophils 0.1 10^3/uL (0.0-0.1); ABS Lymphocytes 1.8 10^3/uL (1.0-4.8); ABS Monocytes 0.7 10^3/uL (0.0-0.9); ABS Neutrophils 10.2 10^3/uL (1.5-7.6); ABS Nucleated RBC 0.01 10^3/ul; Eosinophil % 0.1 %; Hematocrit 35.9 % (35-45); Hemoglobin 12.2 g/dL (11.5-14.3); Lymphocyte % 14.1 %; Mean Corpuscular Hemoglobin 31.3 pg (27-33); Mean Corpuscular Hgb Conc 34.1 g/dL (31-36); Mean Corpuscular Volume 91.9 fL (80-97); Mean Platelet Volume 7.9 fL (7.5-11.2); Platelet Count 261 10^3/uL (150-450); Red Cell Distribution Width 14.9 % (12-17); White Blood Count 12.8 10^3/uL (3.8-11.8)
[2023-11-13 08:42] LABS: Calcium 8.4 mg/dL (8.6-10.3); Creatinine, Serum 0.71 mg/dL (0.51-0.95); eGFR CKD-EPI 102.9 (>60)
[2023-11-13] MEDS ORDERED: HYDROmorphone 0.5 MG/0.5 ML SYRINGE IV SLOW PU PRN (10:00)
[2023-11-13] MEDS: Ondansetron 4 mg VIAL 2 MG/ML 2 ml VIAL IV PRN (11:35)
[2023-11-13] MEDS ORDERED: Prochlorperazine 5 mg/ml 2 ml VIAL (10 mg) IV PRN (17:56)
[2023-11-13] MEDS: Enoxaparin 40 MG/0.4 ML SYR SUBCUT SCH (18:22)
[2023-11-14] MEDS: Ondansetron 4 mg VIAL 2 MG/ML 2 ml VIAL IV PRN (08:11)
[2023-11-14] MEDS: Enoxaparin 40 MG/0.4 ML SYR SUBCUT SCH (18:21)
[2023-11-15 06:08] LABS: Calcium 9.2 mg/dL (8.6-10.3); Creatinine, Serum 0.57 mg/dL (0.51-0.95); Potassium 3.4 mmol/L (3.5-5.0)
[2023-11-15 06:15] LABS: ABS Basophils 0.1 10^3/uL (0.0-0.1); ABS Eosinophils 0.1 10^3/uL (0.0-0.5); ABS Lymphocytes 1.1 10^3/uL (1.0-4.8); ABS Monocytes 0.4 10^3/uL (0.0-0.9); ABS Neutrophils 6.7 10^3/uL (1.5-7.6); ABS Nucleated RBC 0.01 10^3/ul; Eosinophil % 1.1 %; Hematocrit 35.4 % (35-45); Hemoglobin 11.9 g/dL (11.5-14.3); Lymphocyte % 13.6 %; Mean Corpuscular Hemoglobin 31.5 pg (27-33); Mean Corpuscular Hgb Conc 33.6 g/dL (31-36); Mean Corpuscular Volume 93.7 fL (80-97); Mean Platelet Volume 8.7 fL (7.5-11.2); Nucleated Red Blood Cells % 0.1 %/100WBC (0.0-0.8); Platelet Count 222 10^3/uL (150-450); Red Blood Count 3.78 10^6/uL (3.63-4.92); Red Cell Distribution Width 14.8 % (12-17); White Blood Count 8.4 10^3/uL (3.8-11.8)
[2023-11-15 10:18] VITALS: BP 130/82
[2023-11-15] MEDS ORDERED: Potassium Chlor 20 meq TAB.ER PO ONE (10:53)
== END 2023-11-15 13:20 | disposition home or self-care (01) | DRG 221 ==
LOC: AA 09:49 → SSU 19:59
PROVIDERS: ADMIT Surgery Surgical Critical Care; ATTEND Surgery Surgical Critical Care